=== PATIENT | male | born 1965 | race African-American/Black ===

== ENCOUNTER 2018-01-30 10:25 | Emergency (ER) | payer BC ==
[~2018-01-30] VITALS: Ht 182.9 cm; Wt 99.8 kg
[2018-01-30] MEDS ORDERED: NORVASC10 MG (10:48)
[2018-01-30] MEDS ORDERED: PROTONIX40 MG (10:49)
[2018-01-30] MEDS ORDERED: KETO10TA2 PO (15:23)
== END 2018-01-30 16:07 | disposition home or self-care (01) ==
LOC: ER 10:25
DX: M94.0 Chondrocostal junction syndrome [Tietze] (principal); R07.89 Other chest pain